=== PATIENT | male | born 1975 | race Caucasian/White ===

== ENCOUNTER 2019-10-18 00:02 | Outpatient (CLI) | payer BC, SELFPAY ==
[2019-10-18 20:58] LABS: SARS-CoV-2 RNA PCR Negative
== END 2019-10-18 00:03 | disposition home or self-care (01) ==
LOC: ANHCOVIDDT 00:02
PROVIDERS: PCP Physician Assistant; Visit Provider Internal Medicine Gastroenterology
DX: Z01.818 Encounter for other preprocedural examination (principal); Z11.59 Encounter for screening for other viral diseases
CPT/HCPCS: 87635; C9803; U0003

== ENCOUNTER 2019-10-21 00:53 | Day surgery (SDC) | payer BC, SELFPAY ==
[2019-10-15 14:09] VITALS: BMI 27.9
--- NOTE | 2019-10-20 16:05 | WPDANESEPP ---
Anes - Eval Pre Procedure Procedure: Operation Date: 10/21/19 07:30 Proposed Procedures p Screening Colonoscopy - Angel Corona MD Date/Time: 10/20/19 16:05 Pre Op Diagnosis: occult GI bleeding Patient Data Age: 44 Gender: M Height: 1.7 m Weight: 81 kg Allergies Allergy/AdvReac Type Severity Reaction Status Date / Time No Known Allergies Allergy Unverified 10/15/19 14:08 Patient hx anesthesia problems: none Family hx anesthesia problems: none PMFSH Surgical History Surgical History History of inguinal hernia repair Exam Day of Procedure 10/20/19 16:05
[2019-10-21 06:25] VITALS: BP 124/72; PULSE 57; RESP 20; TEMP 36.6; O2SAT 100
[2019-10-21] MEDS: LACTATED RINGERS 1,000 ML 150 ML IV CONT (06:28)
--- NOTE | 2019-10-21 07:19 | WPDANESEFPP ---
Anes - Eval Final PreProcedure Day of Procedure 10/21/19 07:19 Patient weight: overweight Heart: regular rate and rhythm Lungs: clear to auscultation and normal air movement Airway: Mallampati scale class II Neurological: alert and oriented Last oral intake: >/= 8 hours ASA classification: II Emergent: no Anesthetic plan: proceed Anesthesia type and monitoring: general GIVS Informed Consent: The patient's anesthetic plan and its attendant risks and benefits were discussed with the patient/family/POA. Questions were solicited and answers provided to the satisfaction of the patient/family/POA.
[2019-10-21] MEDS: SIMETHICONE ORAL SUSPENSION 20 MG/0.3 ML 30 ML BOTTLE 0.6 ML IRRIGATION (07:46)
--- NOTE | 2019-10-21 07:51 | WPDGICN ---
Assessment and Plan Assessment and plan (1) Rectal bleeding: Code(s): K62.5 - Hemorrhage of anus and rectum Status: Acute Assessment and Plan: Patient has intermittent rectal bleeding. Plan is to evaluate with colonoscopy. High-fiber diet is advised. Further recommendations will be given after endoscopy. (2) Occult blood in stools: Code(s): R19.5 - Other fecal abnormalities Status: Acute GI Consult Note Consult date/time: 10/21/19 07:51 HPI: Srinivasa Smallwood is a 44 year old male Seen in evaluation at the request of Ainsley Kovacs. patient presents for colonoscopy. He notices intermittent bright red blood per rectum. States this occurs perhaps every 6 weeks. In his primary care office was found to have occult blood in stool. Patient denies any abdominal pain he states his weight appetite bowel movements are normal. Currently on no medications no allergies family history is noncontributory. Review of Systems Review of Systems: All systems reviewed & are unremarkable except as noted in HPI and below PMFSH Surgical History Surgical History History of inguinal hernia repair Meds Home Medications and Allergies Home Medications Medication Instructions Recorded Confirmed Type No Home Medications 10/21/19 10/21/19 History Allergies Allergy/AdvReac Type Severity Reaction Status Date / Time No Known Allergies Allergy Unverified 10/21/19 06:14 Vital Signs Vital Signs - 24 hr 10/21/19 06:25 Temperature 36.6 C Pulse Rate 57 L Respiratory Rate 20 Blood Pressure 124/72 Pulse Oximetry 100 Exam Narrative: Exam Narrative: Physical exam reveals Vital Signs to be stable. HEENT exam unremarkable. He is anicteric. Lungs are clear to auscultation and percussion. Heart is without murmur or extra sounds. Abdominal exam bowel sounds are present soft nontender with no organomegaly. Digital external rectal exam normal.
[2019-10-21 07:55] VITALS: BP 90/50; PULSE 60; RESP 22; O2SAT 99
[2019-10-21 08:05] VITALS: BP 88/46; PULSE 48; RESP 21; O2SAT 99
[2019-10-21 08:15] VITALS: BP 83/48; PULSE 45; RESP 22; O2SAT 99
[2019-10-21 08:25] VITALS: BP 100/65; PULSE 51; RESP 21; O2SAT 100
== END 2019-10-21 08:40 | disposition home or self-care (01) ==
PROVIDERS: PCP Physician Assistant; Visit Provider Internal Medicine Gastroenterology
PROC: 0DJD8ZZ Inspection of Lower Intestinal Tract, Via Natural or Artificial Opening Endoscopic (ICD-10-PCS; CPT 45378; principal; 2019-10-21 07:30)
DX: K62.5 Hemorrhage of anus and rectum (principal); K57.30 Diverticulosis of large intestine without perforation or abscess without bleeding; K64.8 Other hemorrhoids
CPT/HCPCS: 45378; J2001; J2704; J7120

== ENCOUNTER 2020-02-04 06:45 | Outpatient (NON) | payer BC, SELFPAY ==
[2020-02-04 19:00] LABS: SARS-CoV-2 RNA PCR Negative
== END 2020-02-04 06:46 ==
PROVIDERS: PCP Physician Assistant; Visit Provider Physician Assistant
DX: Z20.828 Contact with and (suspected) exposure to other viral communicable diseases (principal); R07.89 Other chest pain
CPT/HCPCS: 87635; C9803; U0003

== ENCOUNTER 2020-02-06 13:38 | Outpatient (CLI) | payer BC, SELFPAY ==
--- NOTE | ~2020-02-06 | XR_ITS ---
EXAMINATION: XR chest 2V DATE: 02/06/2020 13:57 INDICATION: Chest tightness. TECHNIQUE: Frontal and lateral views of the chest were obtained. COMPARISON: None. FINDINGS: There is no pneumonia, pleural effusion, or pneumothorax. Cardiomegaly is noted. IMPRESSION: 1. Cardiomegaly. Reviewed, dictated and finalized at location A. IMPRESSION: 1. Cardiomegaly.
== END 2020-02-06 13:39 | disposition home or self-care (01) ==
PROVIDERS: PCP Physician Assistant; Visit Provider Physician Assistant
DX: I51.7 Cardiomegaly (principal)
CPT/HCPCS: 71046

== ENCOUNTER 2020-03-18 08:09 | Emergency (ER) | payer BC, SELFPAY ==
[2020-03-18 08:19] VITALS: BP 141/78; PULSE 65; RESP 18; TEMP 36.2; O2SAT 98
--- NOTE | 2020-03-18 08:37 | ED.URI ---
HPI - URI/Sore Throat General Chief Complaint: Upper Respiratory Infection Stated Complaint: Body Aches Source: patient Mode of arrival: ambulatory Limitations: no limitations History of Present Illness HPI Narrative: Patient is a 44-year-old male who presents complaining of body aches, sore throat, cough and congestion. Patient reports generalized body aches x1 week, reports aches are worse in bilateral legs. He reports intermittent cough and burning sensation in chest with coughing. He denies fever. He reports taking Mucinex and Motrin with limited relief. He reports increased pain with swallowing over the past day. 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 MD elicited complaint: cough, sore throat and other (Body ache) Related Data Allergies Allergy/AdvReac Type Severity Reaction Status Date / Time No Known Allergies Allergy Verified 03/18/20 08:32 Review of Systems Review of Systems: Narrative: CONSTITUTIONAL: Denies fever, chills, or sweats. EYES: Denies visual changes, redness, or discharge. ENT: reports congestion and sore throat CARDIOVASCULAR: Denies chest pain, palpitations, or edema. RESPIRATORY: Reports cough, denies dyspnea. GASTROINTESTINAL: Denies abdominal pain, nausea, vomiting, or diarrhea. GENITOURINARY: Denies dysuria or hematuria. SKIN: Denies rash or itching. MUSCULOSKELETAL: Reports generalized body aches NEUROLOGIC: Denies headache, numbness, dizziness, or weakness. PSYCHIATRIC: Denies anxiety or depression. [facility] Surgical History Surgical History History of hernia surgery Family History Family History (Updated 03/18/20 @ 08:48 by TOMMIE Ramos) Other No significant family history Social History Social History Smoking status: Never smoker Alcohol intake: current Alcohol use details: occasional Substance use: never Living arrangements: with family Occupation/Education: occupation Gender identity (if verbalized by the patient): Male Exam Narrative: Exam Narrative: GENERAL: Patient appears tired, in no acute distress . HEAD: Normocephalic, atraumatic. EYES: No redness or drainage. Conjunctiva are normal. ENT: Mucous membranes pink and moist. Nares clear. No rhinorrhea. TMs normal bilaterally. Throat erythema and edema without exudate, tonsils 3+. Uvula midline. NECK: AROM. Supple. No lymphadenopathy. CHEST: No respiratory distress. Clear to auscultation. HEART: Regular rate and rhythm. EXTREMITIES: Normal range of motion. SKIN: Warm, dry, no rash. NEURO: No focal deficits. Alert and oriented x3. Gait steady. PSYCH: Normal affect. No signs of depression or anxiety. Course Vital Signs Vital signs: Vital Signs Temperature 36.2 C L 03/18/20 08:19 Pulse Rate 65 03/18/20 08:19 Respiratory Rate 18 03/18/20 08:19 Blood Pressure 141/78 H 03/18/20 08:19 Pulse Oximetry 98 03/18/20 08:19 Temperature 36.2 C L 03/18/20 08:19 Pulse Rate 65 03/18/20 08:19 Respiratory Rate 18 03/18/20 08:19 Blood Pressure 141/78 H 03/18/20 08:19 Pulse Oximetry 98 03/18/20 08:19 MDM - URI/Sore Throat MDM Narrative Medical decision making narrative: Patient's rapid strep and influenza were negative. Culture to be sent for strep. Discussed with patient Covid testing. Patient requests Covid testing and will be sent for testing. Discussed quarantine. Discussed increasing fluids and symptomatic treatment. Discussed with patient if he experiences increased chest pain, cough or shortness of breath, that he is to go to the emergency department for further evaluation. Patient agrees with plan of care. Patient is stable for discharge to home with outpatient follow-up as discussed. Differential Diagnosis Differential diagnosis: Likely upper respiratory infection, otitis media, sin
== END 2020-03-18 08:45 | disposition home or self-care (01) ==
PROVIDERS: Emergency Provider Nurse Practitioner; PCP Physician Assistant
DX: J06.9 Acute upper respiratory infection, unspecified (principal); U07.1 COVID-19
CPT/HCPCS: 87081; 87804; 87880; 99213; G0463

== ENCOUNTER 2020-03-20 06:53 | Outpatient (NON) | payer BC, SELFPAY ==
[2020-03-21 13:43] LABS: SARS-CoV-2 RNA PCR Positive
== END 2020-03-20 06:54 ==
PROVIDERS: PCP Physician Assistant; Visit Provider Nurse Practitioner
DX: U07.1 COVID-19 (principal)
CPT/HCPCS: 87635; C9803; U0003

== ENCOUNTER 2022-09-18 08:08 | Emergency (ER) | payer BC, SELFPAY ==
[2022-09-18 08:18] VITALS: BP 130/67; PULSE 63; RESP 12; TEMP 36.7; O2SAT 100
--- NOTE | 2022-09-18 08:34 | ED.GENADULT ---
HPI - General Adult General Chief complaint: Skin/Abscess/Foreign Body Stated complaint: Rash Source: patient Mode of arrival: ambulatory History of Present Illness HPI narrative: Patient presents for evaluation of rash following poison diallo exposure. He indicates he was working outside 2.5 weeks ago. He was exposed to poison diallo at that time. he has since developed of pruritic rash to his left upper extremity and left upper back. No new lotions, soaps, detergents prior to time of symptom onset. He did apply a topical treatment that he purchased OTC. He is not sure that it made a considerable difference in his symptoms. He is not diabetic. He does not smoke. No additional complaints or concerns. Related Data Allergies Allergy/AdvReac Type Severity Reaction Status Date / Time No Known Allergies Allergy Verified 09/18/22 08:25 Review of Systems Review of Systems: CONSTITUTIONAL: Denies fever, chills, or sweats. EYES: Denies visual changes, redness, or discharge. ENT: Denies rhinorrhea, congestion, sore throat, or otalgia. CARDIOVASCULAR: Denies chest pain, palpitations, or edema. RESPIRATORY: Denies cough or dyspnea. GASTROINTESTINAL: Denies abdominal pain, nausea, vomiting, or diarrhea. GENITOURINARY: Denies dysuria or hematuria. SKIN: Reports puritic rash to LUE and left upper back MUSCULOSKELETAL: Denies back pain, joint pain, or myalgia. NEUROLOGIC: Denies headache, numbness, dizziness, or weakness. PSYCHIATRIC: Denies anxiety or depression. [facility] Past Medical History Medical History No pertinent past medical history Surgical History Surgical History History of hernia surgery History of inguinal hernia repair Family History Family History Other No significant family history Social History Social History Smoking status: Never smoker Alcohol intake: current Alcohol use details: occasional Substance use: never Living arrangements: with family Occupation/Education: occupation Gender identity (if verbalized by the patient): Male Exam Narrative: GENERAL: Well-appearing, well-nourished, and in no acute distress. HEAD: Normocephalic, atraumatic. EYES: PERRLA and EOMI. ENT: Nares clear, no rhinorrhea or epistaxis. Mucous membranes moist. Oropharynx without tonsillar hypertrophy exudate or other lesions. Bilateral TMs pearly geiger nonbulging NECK: Supple. No adenopathy or masses. No carotid bruits or JVD CHEST: Clear to auscultation. No respiratory distress. No wheezes rales or rhonchi HEART: Regular rate and rhythm. No murmur heard. Normal peripheral pulses. ABDOMEN: Soft, nontender, nondistended, normal active bowel sounds. EXTREMITIES: Normal range of motion. No edema. SKIN:There are clusters of vesicles with dried sanguinous drainage noted to LUE and left upper back. NEURO: No focal deficits. Alert and oriented x3. PSYCH: Normal mood and affect. Course Course Emergency Course: this is a 47-year-old male who presented for evaluation of pruritic rash following poison diallo exposure. Will treat with prednisone and Benadryl. Follow up with primary provider. Go to the ER for difficulty breathing or swelling. Patient in agreement with plan of care. Level of Care: Express Care Visit Vital Signs Vital signs: Vital Signs Temperature 36.7 C 09/18/22 08:18 Pulse Rate 63 09/18/22 08:18 Respiratory Rate 12 09/18/22 08:18 Blood Pressure 130/67 09/18/22 08:18 Pulse Oximetry 100 09/18/22 08:18 Oxygen Delivery Room Air 09/18/22 08:18 Temperature 36.7 C 09/18/22 08:18 Pulse Rate 63 09/18/22 08:18 Respiratory Rate 12 09/18/22 08:18 Blood Pressure 130/67 09/18/22 08:18 Pulse Oximetry 100 09/18/22 08:18 Ox
== END 2022-09-18 08:30 | disposition home or self-care (01) ==
PROVIDERS: Emergency Provider Nurse Practitioner; PCP Hospitalist
DX: L23.7 Allergic contact dermatitis due to plants, except food (principal)
CPT/HCPCS: 99213; G0463

== ENCOUNTER 2023-04-15 08:46 | Emergency (ER) | payer BC, SELFPAY ==
[2023-04-15 08:52] VITALS: BP 133/89; PULSE 67; RESP 18; TEMP 36.6; O2SAT 98
--- NOTE | 2023-04-15 10:24 | ED.DENTAL ---
HPI - Dental/Oral General Chief complaint: Dental/Oral Stated complaint: swollen lips Time Seen by Provider: 04/15/23 09:37 Source: patient Mode of arrival: ambulatory Limitations: no limitations History of Present Illness HPI Narrative: Patient is a 47-year-old male presents ED with report of swelling of his upper and lower lips. Patient reports the swelling has been intermittent over the last 1 month. He has seen his dentist for this and was told his gums were infected. He underwent a thorough gum cleaning and was placed on Augmentin and Flagyl. He states the swelling improved after being on the antibiotics. He finished antibiotics 1 week ago, but states he woke up this morning with persistent swelling. He does also report his lips have been very chapped. He was advised to use Aquaphor. He has been using this 1-2 times per day. Patient denies significant pain, difficulty breathing or swallowing, fevers, rash, nausea, vomiting, mouth sores, history of canker sores. Patient has a follow-up appointment with his dentist on Monday. Related Data Allergies Allergy/AdvReac Type Severity Reaction Status Date / Time No Known Allergies Allergy Verified 04/15/23 09:29 Review of Systems Review of Systems: CONSTITUTIONAL: Denies fever, chills, or sweats. ENT: See HPI. CARDIOVASCULAR: Denies chest pain. RESPIRATORY: Denies dyspnea. GASTROINTESTINAL: Denies abdominal pain, nausea, vomiting. SKIN: Denies rash. NEUROLOGIC: Denies headache, dizziness, numbness, or weakness. All systems reviewed & are unremarkable except as noted in HPI and below PMFSH Past Medical History Medical History No pertinent past medical history Surgical History Surgical History History of hernia surgery History of inguinal hernia repair Family History Family History Other No significant family history Social History Social History Smoking status: Never smoker Alcohol intake: current Alcohol use details: occasional Substance use: never Living arrangements: with family Occupation/Education: occupation Gender identity (if verbalized by the patient): Male Exam Narrative: GENERAL: Well appearing, well-nourished, non-toxic, in no acute distress. HEAD: Normocephalic, atraumatic. ENT: Lips appear very dry and cracked. No wounds, sores, fever blisters, vesicular lesions. No inner mucosal lesions/blisters/sores. Lips do appear mildly swollen and erythematous. No respiratory distress. No stridor. Maintaining secretions. RESPIRATORY: Airway patent, respirations nonlabored. CARDIOVASCULAR: Regular rate and rhythm. MUSCULOSKELETAL: Moves all extremities. No gross deformities. SKIN: Warm, dry, normal color. No rash. NEURO: A&O X3. Speech clear. Cranial nerves II-XII grossly intact. Steady gait. No ataxic movements. PSYCHIATRIC: Appropriate mood and affect. Normal interaction. Course Vital Signs Vital signs: Vital Signs Temperature 97.9 F 04/15/23 08:52 Pulse Rate 67 04/15/23 08:52 Respiratory Rate 18 04/15/23 08:52 Blood Pressure 133/89 04/15/23 08:52 Pulse Oximetry 98 04/15/23 08:52 Oxygen Delivery Room Air 04/15/23 08:52 Temperature 97.9 F 04/15/23 08:52 Pulse Rate 67 04/15/23 08:52 Respiratory Rate 18 04/15/23 08:52 Blood Pressure 133/89 04/15/23 08:52 Pulse Oximetry 98 04/15/23 08:52 Oxygen Delivery Room Air 04/15/23 08:52 MDM - Dental/Oral MDM Narrative Medical decision making narrative: Patient presented to ED with lip swelling, ongoing intermittently over last 1 month. initially improved with antibiotics provided by a dentist. Patient has follow-up with dentist next week. Vital stable. Patient in no acute distress.
== END 2023-04-15 10:57 | disposition home or self-care (01) ==
PROVIDERS: Emergency Provider Physician Assistant; PCP Hospitalist
DX: R22.0 Localized swelling, mass and lump, head (principal); T69.8XXA Other specified effects of reduced temperature, initial encounter; X58.XXXA Exposure to other specified factors, initial encounter
CPT/HCPCS: 99283

== ENCOUNTER 2023-08-06 09:33 | Emergency (ER) | payer BC, SELFPAY ==
--- NOTE | ~2023-08-06 | XR_ITS ---
EXAMINATION: XR chest 2V DATE: 08/06/2023 10:41 INDICATION: 3 weeks of cough TECHNIQUE: frontal and lateral views of the chest were obtained. COMPARISON: None FINDINGS: The lungs are clear with no focal airspace opacities, pulmonary edema, pleural effusion or pneumothor ax. The cardiomediastinal silhouette is normal. Mild thoracic spondylosis. IMPRESSION: 1. No acute cardiopulmonary disease. Reviewed, dictated and finalized at location A.
[2023-08-06 10:11] VITALS: BP 132/70; PULSE 57; RESP 16; TEMP 36.5; O2SAT 100
--- NOTE | 2023-08-06 10:30 | ED.GENADULT ---
HPI - General Adult General Chief complaint: Upper Respiratory Infection Stated complaint: Sinus Source: patient Mode of arrival: ambulatory Limitations: no limitations History of Present Illness HPI narrative: Patient presents for evaluation of cough for the last 3 weeks. Cough is productive of yellow sputum. He denies any shortness of breath. No fever, chills, nausea, vomiting. He has some pressure in his right ear and feels that his throat is scratchy in the morning. He initially took a few doses of mucinex but has not taken any medication as of late. He does not smoke. No recent sick contacts to his knowledge. Related Data Allergies Allergy/AdvReac Type Severity Reaction Status Date / Time No Known Allergies Allergy Verified 08/06/23 10:00 Review of Systems Review of Systems: CONSTITUTIONAL: Denies fever, chills, or sweats. EYES: Denies visual changes, redness, or discharge. ENT: Reports scratchy throat . Denies rhinorrhea, congestion, or otalgia. CARDIOVASCULAR: Denies chest pain, palpitations, or edema. RESPIRATORY: Reports cough. Denies dyspnea. GASTROINTESTINAL: Denies abdominal pain, nausea, vomiting, or diarrhea. GENITOURINARY: Denies dysuria or hematuria. SKIN: Denies rash or itching. MUSCULOSKELETAL: Denies back pain, joint pain, or myalgia. NEUROLOGIC: Denies headache, numbness, dizziness, or weakness. PSYCHIATRIC: Denies anxiety or depression. [facility] Past Medical History Medical History No pertinent past medical history Surgical History Surgical History History of hernia surgery History of inguinal hernia repair Family History Family History Other No significant family history Social History Social History Smoking status: Never smoker Alcohol intake: current Alcohol use details: occasional Substance use: never Living arrangements: with family Occupation/Education: occupation Gender identity (if verbalized by the patient): Male Exam Narrative: GENERAL: Well-appearing, well-nourished, and in no acute distress. HEAD: Normocephalic, atraumatic. EYES: PERRLA and EOMI. ENT: Nares clear, no rhinorrhea or epistaxis. Mucous membranes moist. Oropharynx without tonsillar hypertrophy exudate or other lesions. Bilateral TMs pearly geiger nonbulging NECK: Supple. No adenopathy or masses. No carotid bruits or JVD CHEST: Clear to auscultation. Cough present on exam. No respiratory distress. No wheezes rales or rhonchi HEART: Regular rate and rhythm. No murmur heard. Normal peripheral pulses. ABDOMEN: Soft, nontender, nondistended, normal active bowel sounds. EXTREMITIES: Normal range of motion. No edema. SKIN: Warm, dry, no rash. NEURO: No focal deficits. Alert and oriented x3. PSYCH: Normal mood and affect. Course Course Emergency Course: This is a 47-year-old male who presented for evaluation of cough. Influenza and COVID were not checked as cough has been present for 3 weeks. Chest x-ray was normal. He has no shortness of breath, tachycardia or hypoxia to suggest PE. Will treat with Tessalon Perles. Follow-up with primary provider to ensure resolution of symptoms. go to the emergency department for shortness of breath or worsening symptoms. Patient in agreement with plan of care. Level of Care: Express Care Visit Vital Signs Vital signs: Vital Signs Temperature 36.5 C 08/06/23 10:11 Pulse Rate 57 L 08/06/23 10:11 Respiratory Rate 16 08/06/23 10:11 Blood Pressure 132/70 08/06/23 10:11 Pulse Oximetry 100 08/06/23 10:11 Oxygen Delivery Room Air 08/06/23 10:11 Temperature 36.5 C 08/06/23 10:11 Pulse Rate 57 L 08/06/23 10:11 Respiratory Rate 16 08/06/23 10:11 Blood Pressure 132/70 08/05
== END 2023-08-06 12:00 | disposition home or self-care (01) ==
PROVIDERS: Emergency Provider Nurse Practitioner; PCP Hospitalist
DX: R05.1 Acute cough (principal); H69.91 Unspecified Eustachian tube disorder, right ear
CPT/HCPCS: 71046; 99213; G0463